=== PATIENT | female | born 1980 | race Caucasian/White ===

== ENCOUNTER 2024-06-28 20:07 | Inpatient (IN) | payer MEDICARE, OTHER ==
[~2024-06-28] VITALS: Ht 172.7 cm; Wt 129.7 kg
[~2024-06-28 20:07] MED LIST: BRIM5DRO9 OS; BRIN10DR3 OS; BUME1TAB50 PO; CARV25 PO; CLON0.3T PO; DOCU-119 PO; ERGO500054 PO; FERR325T23 PO; HYDR50TA36 PO; INSLAN SQ; ISOS20TA9 PO; NEED-463 SQ; SEMA0.258 SQ
[2024-06-28] MEDS ORDERED: ACETAMINOPHEN 500 MG TABLET PO ONE (20:30)
[2024-06-28] MEDS ORDERED: MORPHINE SULFATE 2 MG/ML SYRINGE IVP ONE (20:30)
[2024-06-28 21:31] LABS: BASOPHILS % (AUTO) 0.9 % (0.0-2.0); EOSINOPHILS % (AUTO) 3.3 % (1.0-6.0); HEMATOCRIT 25.9 % (36-46); HEMOGLOBIN 8.1 g/dL (12.0-16.0); LYMPHOCYTES # (AUTO) 1.5 K/uL (1.0-4.8); LYMPHOCYTES % (AUTO) 11.8 % (22.0-44.0); MEAN CORPUSCULAR HEMOGLOBIN 27.6 pg (26.0-34.0); MEAN CORPUSCULAR HGB CONC 31.4 G/dL (31.0-37.0); MEAN CORPUSCULAR VOLUME 88 fL (80-100); MONOCYTES # (AUTO) 0.8 K/uL (0.1-1.0); MONOCYTES % (AUTO) 5.8 % (2.0-9.0); NEUTROPHILS # (AUTO) 10.2 K/uL (1.8-7.7); NEUTROPHILS % (AUTO) 78.2 % (40.0-70.0); PLATELET COUNT (AUTO) 657 K/uL (150-450); RED BLOOD CELL COUNT(AUTO) 2.94 MIL/uL (4.00-5.20); RED CELL DISTRIBUTION WIDTH 17.2 % (11.5-14.5)
[2024-06-28] MEDS: BUMETANIDE 0.25 MG/ML 4 ML VIAL IVP ONE (21:35)
[2024-06-28] MEDS: HYDROCODONE/ACETAMINOPHEN 5-325 MG TABLET PO ONE (21:35)
[2024-06-28] MEDS: HydrALAZINE HCL 20 MG/ML VIAL IVP ONE (21:35)
[2024-06-28 21:38] LABS: ANION GAP 8 mmol/L (8-16); CALCIUM, TOTAL 8.7 mg/dL (8.8-10.5); CARBON DIOXIDE 27 mmol/L (22-29); CHLORIDE 102 mmol/L (98-107); CREATININE 4.14 mg/dL (0.60-1.30); GLOMERULAR FILTR. RATE CALC 12 mL/min (>60); GLUCOSE,RANDOM 255 mg/dL (70-110); POTASSIUM 3.9 mmol/L (3.5-5.1); SODIUM SERUM 137 mmol/L (136-145); UREA NITROGEN, BLOOD 77 mg/dL (7-18)
[2024-06-28 21:44] LABS: ALBUMIN 2.3 g/dL (3.4-5.0); BILIRUBIN,DIRECT 0.3 mg/dL (0.00-0.20); BILIRUBIN,TOTAL 0.5 mg/dL (0.1-1.0); TOTAL PROTEIN, SERUM 7.3 g/dL (6.4-8.2)
[2024-06-28 21:46] LABS: B-TYPE NATRIURETIC PEPTIDE 1100 pg/mL (0-100)
[2024-06-28 22:08] LABS: CREATINE KINASE, TOTAL ONLY 108 U/L (26-192)
[2024-06-28 22:12] LABS: TROPONIN I-HIGH SENSITIVITY 144 ng/L (<51)
[2024-06-28] MEDS ORDERED: HydrALAZINE HCL 20 MG/ML VIAL IVP PRN (22:15)
[2024-06-28] MEDS ORDERED: NITROGLYCERIN 2% (1 GM=INCH) OINTMENT PACKET TP SCH (22:15)
[2024-06-28] MEDS: LABETALOL HCL 200 MG TABLET PO SCH (22:50)
[2024-06-28 22:51] LABS: APPEARANCE,URINE CLEAR (CLEAR); BILIRUBIN,URINE NEGATIVE (NEGATIVE); COLOR,URINE LIGHT YELLOW (YELLOW); GLUCOSE, URINE (UA) 150-200 mg/dL (NEGATIVE); KETONES,URINE NEGATIVE (NEGATIVE); LEUKOCYTE ESTERASE ,URINE TRACE (NEGATIVE); NITRATE,URINE NEGATIVE (NEGATIVE); OCCULT BLOOD,URINE NEGATIVE (NEGATIVE); PH,URINE 6.5 (5.0-8.0); PROTEIN,URINE 300-600,SEE CONFIRM mg/dL (NEGATIVE); UROBILINOGEN,URINE <=1.0 mg/dL (<=1.0)
[2024-06-28 23:06] LABS: BACTERIA,URINE None Seen /HPF (None Seen); RBC,URINE 0-2 /HPF (0-2); SQUAMOUS EPITHELIAL CELL,UR Rare /LPF (None Seen); SULFOSALICYLIC ACID,URINE 3+ (Negative); WBC,URINE 0-2 /HPF (0-5)
[2024-06-28] MEDS: HEPARIN SODIUM,PORCINE 5,000 UNITS/ML VIAL SQ SCH (23:27)
[2024-06-28] MEDS: NITROGLYCERIN 2% (1 GM=INCH) OINTMENT PACKET TP SCH (23:27)
[2024-06-29] VITALS (7 sets, daily range): BP systolic 141–192; BP diastolic 73–103; PULSE 72–77; RESP 16–18; TEMP 97.7–98.2; O2SAT 97–100
[2024-06-29] MEDS: HydrALAZINE HCL 20 MG/ML VIAL IVP PRN (00:18)
[2024-06-29] MEDS: ACETAMINOPHEN 325 MG TABLET PO PRN (02:10)
[2024-06-29] MEDS: ISOSORBIDE MONONITRATE 30 MG ER TABLET PO ONE (02:13)
[2024-06-29 04:54] LABS: BASOPHILS % (AUTO) 1.1 % (0.0-2.0); EOSINOPHILS % (AUTO) 2.6 % (1.0-6.0); HEMATOCRIT 22.7 % (36-46); HEMOGLOBIN 7.3 g/dL (12.0-16.0); LYMPHOCYTES # (AUTO) 1.3 K/uL (1.0-4.8); LYMPHOCYTES % (AUTO) 12.7 % (22.0-44.0); MEAN CORPUSCULAR HGB CONC 32.2 G/dL (31.0-37.0); MEAN CORPUSCULAR VOLUME 87 fL (80-100); MONOCYTES # (AUTO) 0.8 K/uL (0.1-1.0); MONOCYTES % (AUTO) 7.3 % (2.0-9.0); NEUTROPHILS # (AUTO) 7.9 K/uL (1.8-7.7); NEUTROPHILS % (AUTO) 76.3 % (40.0-70.0); PLATELET COUNT (AUTO) 573 K/uL (150-450); RED BLOOD CELL COUNT(AUTO) 2.61 MIL/uL (4.00-5.20); RED CELL DISTRIBUTION WIDTH 17.4 % (11.5-14.5); WHITE BLOOD COUNT (AUTO) 10.4 K/uL (4.5-11.0)
[2024-06-29 05:03] LABS: CALCIUM, TOTAL 8.2 mg/dL (8.8-10.5); CREATININE 4.04 mg/dL (0.60-1.30); MAGNESIUM 2.1 mg/dL (1.80-2.40)
[2024-06-29 05:13] LABS: TROPONIN I-HIGH SENSITIVITY 151 ng/L (<51)
[2024-06-29] MEDS: DOCUSATE SODIUM 100 MG CAPSULE PO SCH (09:00)
[2024-06-29] MEDS: BUMETANIDE 0.25 MG/ML 4 ML VIAL IVP SCH (09:12)
[2024-06-29] MEDS: BRIMONIDINE TARTRATE 0.2% 5 ML OPHTHALMIC SOLUTION OS SCH (09:13)
[2024-06-29] MEDS: BRINZOLAMIDE 1% 10 ML OPHTHALMIC SUSPENSION OS SCH (09:13)
[2024-06-29] MEDS: DiphenhydrAMINE HCL 50 MG/ML VIAL IVP ONE (09:16)
[2024-06-29] MEDS: INSULIN GLARGINE,HUM.REC.ANLOG 100 UNITS/ML SQ SCH (09:22)
[2024-06-29 11:26] LABS: GLUCOMETER DEV NAME(LOC) 5N.1D; GLUCOSE,POINT OF CARE 280 MG/DL (70-110)
[2024-06-29] MEDS: CloNIDine HCL 0.1 MG TABLET PO ONE (13:11)
[2024-06-29] MEDS: CloNIDine HCL 0.1 MG TABLET PO SCH (15:23)
[2024-06-30] VITALS (7 sets, daily range): BP systolic 160–192; BP diastolic 81–96; PULSE 75–81; RESP 19–20; TEMP 97.9–98.6; O2SAT 92–99
[2024-06-30 00:11] LABS: GLUCOMETER DEV NAME(LOC) 5N.1D; GLUCOSE,POINT OF CARE 278 MG/DL (70-110)
[2024-06-30 07:14] LABS: CALCIUM, TOTAL 8.7 mg/dL (8.8-10.5); CREATININE 4.05 mg/dL (0.60-1.30); MAGNESIUM 2.2 mg/dL (1.80-2.40); PHOSPHORUS 5.7 mg/dL (2.5-4.9); POTASSIUM 3.9 mmol/L (3.5-5.1)
[2024-06-30] MEDS: ONDANSETRON HCL 4 MG/2 ML VIAL IVP PRN (08:24)
[2024-06-30] MEDS: CARVEDILOL 12.5 MG TABLET PO SCH ×2 (08:35→21:23)
[2024-06-30 10:46] LABS: GLUCOMETER DEV NAME(LOC) 5N.1D; GLUCOSE,POINT OF CARE 194 MG/DL (70-110)
[2024-06-30 10:46] LABS: GLUCOMETER DEV NAME(LOC) 5N.1D; GLUCOSE,POINT OF CARE 205 MG/DL (70-110)
[2024-06-30 12:01] LABS: GLUCOMETER DEV NAME(LOC) 5N.1D; GLUCOSE,POINT OF CARE 195 MG/DL (70-110)
[2024-06-30] MEDS: HydrALAZINE HCL 50 MG TABLET PO SCH (12:23)
[2024-06-30] MEDS: SEVELAMER CARBONATE 800 MG TABLET PO SCH (12:23)
[2024-06-30] MEDS: CloNIDine HCL 0.1 MG TABLET PO ONE (13:47)
[2024-06-30] MEDS: CloNIDine HCL 0.1 MG TABLET PO SCH (16:35)
[2024-06-30 19:55] LABS: GLUCOMETER DEV NAME(LOC) 5N.1D; GLUCOSE,POINT OF CARE 211 MG/DL (70-110)
[2024-06-30] MEDS: HydrALAZINE HCL 25 MG TABLET PO SCH (23:56)
[2024-07-01] VITALS (7 sets, daily range): BP systolic 164–189; BP diastolic 79–91; PULSE 67–81; RESP 17–20; TEMP 97.7–98.8; O2SAT 93–96
[2024-07-01 06:07] LABS: BASOPHILS % (AUTO) 1.4 % (0.0-2.0); EOSINOPHILS % (AUTO) 3.3 % (1.0-6.0); HEMATOCRIT 24.2 % (36-46); HEMOGLOBIN 7.7 g/dL (12.0-16.0); LYMPHOCYTES # (AUTO) 2.1 K/uL (1.0-4.8); LYMPHOCYTES % (AUTO) 20.2 % (22.0-44.0); MEAN CORPUSCULAR HEMOGLOBIN 27.9 pg (26.0-34.0); MEAN CORPUSCULAR HGB CONC 31.9 G/dL (31.0-37.0); MEAN CORPUSCULAR VOLUME 88 fL (80-100); MONOCYTES % (AUTO) 9.6 % (2.0-9.0); NEUTROPHILS # (AUTO) 6.9 K/uL (1.8-7.7); NEUTROPHILS % (AUTO) 65.5 % (40.0-70.0); PLATELET COUNT (AUTO) 552 K/uL (150-450); RED BLOOD CELL COUNT(AUTO) 2.76 MIL/uL (4.00-5.20); RED CELL DISTRIBUTION WIDTH 17.8 % (11.5-14.5); WHITE BLOOD COUNT (AUTO) 10.6 K/uL (4.5-11.0)
[2024-07-01 06:10] LABS: GLUCOMETER DEV NAME(LOC) 5N.1D; GLUCOSE,POINT OF CARE 248 MG/DL (70-110)
[2024-07-01 06:18] LABS: CALCIUM, TOTAL 8.6 mg/dL (8.8-10.5); CREATININE 3.84 mg/dL (0.60-1.30); POTASSIUM 3.7 mmol/L (3.5-5.1)
[2024-07-01 09:04] LABS: % IRON SATURATION 13.9 % (22-44)
[2024-07-01] MEDS: ISOSORBIDE MONONITRATE 30 MG ER TABLET PO SCH ×2 (09:16→20:19)
[2024-07-01 12:16] LABS: GLUCOMETER DEV NAME(LOC) 5S.2D; GLUCOSE,POINT OF CARE 128 MG/DL (70-110)
[2024-07-01 12:16] LABS: GLUCOMETER DEV NAME(LOC) 5S.2D; GLUCOSE,POINT OF CARE 114 MG/DL (70-110)
[2024-07-01] MEDS: DiphenhydrAMINE/ZINC ACET 30 GM CREAM TP ONE (14:11)
[2024-07-01 17:51] LABS: GLUCOMETER DEV NAME(LOC) 5S.2D; GLUCOSE,POINT OF CARE 106 MG/DL (70-110)
[2024-07-01 20:40] LABS: GLUCOMETER DEV NAME(LOC) 5N.1D; GLUCOSE,POINT OF CARE 103 MG/DL (70-110)
[2024-07-01 21:26] LABS: GLUCOMETER DEV NAME(LOC) 5S.2D; GLUCOSE,POINT OF CARE 124 MG/DL (70-110)
[2024-07-02 02:05] VITALS: BP 186/89; PULSE 78; RESP 18; O2SAT 98
[2024-07-02 04:55] VITALS: BP 193/93; PULSE 73; RESP 18; TEMP 98.2; O2SAT 97
[2024-07-02 05:59] LABS: BASOPHILS % (AUTO) 1.1 % (0.0-2.0); EOSINOPHILS % (AUTO) 3.9 % (1.0-6.0); HEMATOCRIT 24.1 % (36-46); HEMOGLOBIN 7.7 g/dL (12.0-16.0); LYMPHOCYTES # (AUTO) 2.1 K/uL (1.0-4.8); LYMPHOCYTES % (AUTO) 20.9 % (22.0-44.0); MEAN CORPUSCULAR VOLUME 88 fL (80-100); MONOCYTES # (AUTO) 0.8 K/uL (0.1-1.0); NEUTROPHILS # (AUTO) 6.6 K/uL (1.8-7.7); NEUTROPHILS % (AUTO) 66.1 % (40.0-70.0); PLATELET COUNT (AUTO) 551 K/uL (150-450); RED BLOOD CELL COUNT(AUTO) 2.75 MIL/uL (4.00-5.20); RED CELL DISTRIBUTION WIDTH 18.1 % (11.5-14.5); WHITE BLOOD COUNT (AUTO) 9.9 K/uL (4.5-11.0)
[2024-07-02 06:09] LABS: CALCIUM, TOTAL 8.8 mg/dL (8.8-10.5); CREATININE 3.99 mg/dL (0.60-1.30); PHOSPHORUS 5.5 mg/dL (2.5-4.9); POTASSIUM 3.8 mmol/L (3.5-5.1)
[2024-07-02 08:15] VITALS: BP 179/87; PULSE 77; RESP 19; TEMP 98.4; O2SAT 91
[2024-07-02] MEDS: ISOSORBIDE MONONITRATE 30 MG ER TABLET PO SCH (09:15)
[2024-07-02] MEDS: CloNIDine 0.2 MG/24 HOUR PATCH TD ONE (09:17)
[2024-07-02 10:42] LABS: GLUCOMETER DEV NAME(LOC) 5S.2D; GLUCOSE,POINT OF CARE 84 MG/DL (70-110)
[2024-07-02 11:31] LABS: GLUCOMETER DEV NAME(LOC) 5N.2C; GLUCOSE,POINT OF CARE 120 MG/DL (70-110)
[2024-07-02 11:40] VITALS: BP 160/78; PULSE 75; RESP 18; TEMP 98.1; O2SAT 96
[2024-07-02 12:22] LABS: TROPONIN I-HIGH SENSITIVITY 150 ng/L (<51)
[2024-07-02 17:25] LABS: GLUCOMETER DEV NAME(LOC) 5N.2C; GLUCOSE,POINT OF CARE 107 MG/DL (70-110)
[2024-07-02] MEDS: EPOETIN ALFA 10,000 UNITS/ML VIAL SQ ONE (17:44)
[2024-07-02 17:58] VITALS: BP 195/91; PULSE 77; RESP 18; TEMP 98.4; O2SAT 96
[2024-07-02 18:05] LABS: GLUCOMETER DEV NAME(LOC) 5N.1D; GLUCOSE,POINT OF CARE 95 MG/DL (70-110)
[2024-07-02 20:00] VITALS: BP 180/82; PULSE 82; RESP 17; TEMP 98; O2SAT 95
[2024-07-02 22:01] LABS: GLUCOMETER DEV NAME(LOC) 5S.2D; GLUCOSE,POINT OF CARE 132 MG/DL (70-110)
[2024-07-03] VITALS (8 sets, daily range): BP systolic 162–198; BP diastolic 79–92; PULSE 70–83; RESP 18–20; TEMP 97.7–98.2; O2SAT 93–97
[2024-07-03 06:45] LABS: GLUCOMETER DEV NAME(LOC) 5S.2D; GLUCOSE,POINT OF CARE 113 MG/DL (70-110)
[2024-07-03 08:07] LABS: BASOPHILS % (AUTO) 0.8 % (0.0-2.0); EOSINOPHILS % (AUTO) 4.2 % (1.0-6.0); HEMATOCRIT 22.9 % (36-46); HEMOGLOBIN 7.3 g/dL (12.0-16.0); LYMPHOCYTES # (AUTO) 2.3 K/uL (1.0-4.8); LYMPHOCYTES % (AUTO) 24.1 % (22.0-44.0); MEAN CORPUSCULAR HEMOGLOBIN 27.9 pg (26.0-34.0); MEAN CORPUSCULAR HGB CONC 31.8 G/dL (31.0-37.0); MEAN CORPUSCULAR VOLUME 88 fL (80-100); MONOCYTES # (AUTO) 0.8 K/uL (0.1-1.0); MONOCYTES % (AUTO) 8.5 % (2.0-9.0); NEUTROPHILS % (AUTO) 62.4 % (40.0-70.0); PLATELET COUNT (AUTO) 489 K/uL (150-450); RED BLOOD CELL COUNT(AUTO) 2.61 MIL/uL (4.00-5.20); RED CELL DISTRIBUTION WIDTH 17.8 % (11.5-14.5); WHITE BLOOD COUNT (AUTO) 9.5 K/uL (4.5-11.0)
[2024-07-03 08:26] LABS: ALBUMIN 2.1 g/dL (3.4-5.0); BILIRUBIN,TOTAL 0.5 mg/dL (0.1-1.0); CALCIUM, TOTAL 8.6 mg/dL (8.8-10.5); CREATININE 3.98 mg/dL (0.60-1.30); POTASSIUM 3.6 mmol/L (3.5-5.1); TOTAL PROTEIN, SERUM 6.6 g/dL (6.4-8.2)
[2024-07-03] MEDS: CloNIDine HCL 0.1 MG TABLET PO SCH (12:02)
[2024-07-03] MEDS: MINOXIDIL 2.5 MG TABLET PO SCH (13:10)
[2024-07-03] MEDS: HYDROCODONE/ACETAMINOPHEN 5-325 MG TABLET PO PRN (15:36)
[2024-07-03 17:05] LABS: GLUCOMETER DEV NAME(LOC) 5S.2D; GLUCOSE,POINT OF CARE 137 MG/DL (70-110)
[2024-07-03 21:31] LABS: GLUCOMETER DEV NAME(LOC) 5N.1D; GLUCOSE,POINT OF CARE 180 MG/DL (70-110)
[2024-07-04] VITALS (8 sets, daily range): BP systolic 127–179; BP diastolic 66–88; PULSE 76–85; RESP 17–19; TEMP 97.7–98.2; O2SAT 95–99
[2024-07-04 06:05] LABS: GLUCOMETER DEV NAME(LOC) 5S.2D; GLUCOSE,POINT OF CARE 255 MG/DL (70-110)
[2024-07-04 06:16] LABS: GLUCOMETER DEV NAME(LOC) 5N.2C; GLUCOSE,POINT OF CARE 222 MG/DL (70-110)
[2024-07-04] MEDS: ERGOCALCIFEROL (VIT D2) 50,000 UNITS [1,250 MCG] CAPSULE PO SCH (13:42)
[2024-07-04 14:11] LABS: GLUCOMETER DEV NAME(LOC) 5N.2C; GLUCOSE,POINT OF CARE 240 MG/DL (70-110)
[2024-07-04 20:06] LABS: GLUCOMETER DEV NAME(LOC) 5N.1D; GLUCOSE,POINT OF CARE 193 MG/DL (70-110)
[2024-07-05 01:40] LABS: GLUCOMETER DEV NAME(LOC) 5N.1D; GLUCOSE,POINT OF CARE 238 MG/DL (70-110)
[2024-07-05 04:43] VITALS: BP 172/78; PULSE 76; RESP 18; TEMP 97.7; O2SAT 95
[2024-07-05] MEDS ORDERED: MIDAZOLAM HCL 2 MG/2 ML VIAL ONE (04:58)
[2024-07-05] MEDS ORDERED: ONDANSETRON HCL 4 MG/2 ML VIAL ONE (04:58)
[2024-07-05] MEDS ORDERED: DiphenhydrAMINE HCL 50 MG/ML VIAL ONE (04:58)
[2024-07-05] MEDS ORDERED: PROPOFOL 1% ISO-OSM 1000 MG/100 ML BOTTLE ONE (04:58)
[2024-07-05] MEDS ORDERED: FentaNYL CITRATE PF 100 MCG/2 ML VIAL ONE (04:58)
[2024-07-05] MEDS ORDERED: KETAMINE HCL 50 MG/ML 10 ML VIAL ONE (04:58)
[2024-07-05] MEDS ORDERED: GLYCOPYRROLATE 0.2 MG/ML VIAL ONE (04:58)
[2024-07-05] MEDS ORDERED: LIDOCAINE/PF 2% 5 ML SYRINGE IVP ONE (04:58)
[2024-07-05 05:45] VITALS: BP 165/70
[2024-07-05] MEDS ORDERED: MEPERIDINE-PF 25 MG/ML VIAL IVP PRN (07:45)
[2024-07-05] MEDS ORDERED: FentaNYL CITRATE PF 100 MCG/2 ML VIAL IVP PRN (07:45)
[2024-07-05] MEDS ORDERED: HYDROmorphone HCL 2 MG/ML SYRINGE IVP PRN (07:45)
[2024-07-05] MEDS: OXYGEN THERAPY IH SCH (08:23)
[2024-07-05 08:31] LABS: GLUCOMETER DEV NAME(LOC) 5N.1D; GLUCOSE,POINT OF CARE 152 MG/DL (70-110)
[2024-07-05 08:54] VITALS: BP 159/77; PULSE 81; RESP 17; TEMP 98.1; O2SAT 98
[2024-07-05 09:09] LABS: CALCIUM, TOTAL 9.1 mg/dL (8.8-10.5); CREATININE 4.06 mg/dL (0.60-1.30); POTASSIUM 3.7 mmol/L (3.5-5.1)
[2024-07-05 09:16] LABS: EOSINOPHILS % (AUTO) 5.2 % (1.0-6.0); HEMATOCRIT 24.7 % (36-46); HEMOGLOBIN 7.7 g/dL (12.0-16.0); LYMPHOCYTES # (AUTO) 1.6 K/uL (1.0-4.8); LYMPHOCYTES % (AUTO) 16.8 % (22.0-44.0); MEAN CORPUSCULAR HEMOGLOBIN 27.4 pg (26.0-34.0); MEAN CORPUSCULAR VOLUME 88 fL (80-100); MONOCYTES % (AUTO) 10.6 % (2.0-9.0); NEUTROPHILS # (AUTO) 6.2 K/uL (1.8-7.7); NEUTROPHILS % (AUTO) 66.4 % (40.0-70.0); PLATELET COUNT (AUTO) 460 K/uL (150-450); RED CELL DISTRIBUTION WIDTH 18.1 % (11.5-14.5); WHITE BLOOD COUNT (AUTO) 9.3 K/uL (4.5-11.0)
[2024-07-05 09:27] LABS: PROTHROMBIN TIME 11.1 SEC (9.4-11.6)
[2024-07-05] MEDS ORDERED: SODIUM CHLORIDE 0.9% 1,000 ML ONE (11:29)
[2024-07-05] MEDS: ETHYL ALCOHOL 62% ANTISEPTIC NASAL SANITIZER 0.6 ML AMPUL NASAL ONE (11:42)
[2024-07-05] MEDS: CHLORHEXIDINE GLUCONATE 2% TOWELETTE [2'S/6'S] TP ONE (11:43)
[2024-07-05 12:00] VITALS: BP 155/74; PULSE 83; RESP 21; TEMP 97.9; O2SAT 96
[2024-07-05 12:10] LABS: GLUCOMETER DEV NAME(LOC) 5N.2C; GLUCOSE,POINT OF CARE 85 MG/DL (70-110)
[2024-07-05] MEDS ORDERED: SODIUM CHLORIDE 0.9% 250 ML IV ONE (12:18)
[2024-07-05] MEDS ORDERED: CeFAZolin SODIUM 1 GM VIAL ONE (12:27)
[2024-07-05] MEDS ORDERED: VANCOMYCIN HCL 1 GM VIAL ONE (12:58)
[2024-07-05] MEDS: CLINDAMYCIN 600 MG/D5% WATER 50 ML IV ONE (13:00)
[2024-07-05] MEDS: SODIUM CHLORIDE 0.9% 1,000 ML IV ONE (13:24)
[2024-07-05] MEDS: HEPARIN SODIUM,PORCINE 5,000 UNITS/ML VIAL ONE (15:24)
[2024-07-05] MEDS: LIDOCAINE/PF 1% 30 ML VIAL ONE (15:25)
[2024-07-05 18:00] LABS: GLUCOMETER DEV NAME(LOC) 5N.1D; GLUCOSE,POINT OF CARE 82 MG/DL (70-110)
[2024-07-05 19:39] VITALS: BP 166/80; PULSE 93; RESP 19; TEMP 98; O2SAT 96
[2024-07-05 21:50] LABS: GLUCOMETER DEV NAME(LOC) 5S.2D; GLUCOSE,POINT OF CARE 179 MG/DL (70-110)
[2024-07-06 00:35] VITALS: BP 139/93; PULSE 86; RESP 17; TEMP 98.2; O2SAT 96
[2024-07-06 05:52] VITALS: BP 163/76; PULSE 87; RESP 19; TEMP 98.6; O2SAT 97
[2024-07-06 07:05] LABS: GLUCOMETER DEV NAME(LOC) 5N.1D; GLUCOSE,POINT OF CARE 172 MG/DL (70-110)
[2024-07-06 07:29] LABS: BASOPHILS % (AUTO) 0.9 % (0.0-2.0); EOSINOPHILS % (AUTO) 3.5 % (1.0-6.0); HEMATOCRIT 24.5 % (36-46); HEMOGLOBIN 7.7 g/dL (12.0-16.0); LYMPHOCYTES # (AUTO) 1.5 K/uL (1.0-4.8); LYMPHOCYTES % (AUTO) 16.1 % (22.0-44.0); MEAN CORPUSCULAR HEMOGLOBIN 27.8 pg (26.0-34.0); MEAN CORPUSCULAR HGB CONC 31.3 G/dL (31.0-37.0); MEAN CORPUSCULAR VOLUME 89 fL (80-100); MONOCYTES # (AUTO) 0.8 K/uL (0.1-1.0); MONOCYTES % (AUTO) 8.8 % (2.0-9.0); NEUTROPHILS # (AUTO) 6.5 K/uL (1.8-7.7); NEUTROPHILS % (AUTO) 70.7 % (40.0-70.0); PLATELET COUNT (AUTO) 463 K/uL (150-450); RED BLOOD CELL COUNT(AUTO) 2.75 MIL/uL (4.00-5.20); RED CELL DISTRIBUTION WIDTH 18.8 % (11.5-14.5); WHITE BLOOD COUNT (AUTO) 9.3 K/uL (4.5-11.0)
[2024-07-06 07:41] LABS: CALCIUM, TOTAL 8.5 mg/dL (8.8-10.5); CREATININE 4.11 mg/dL (0.60-1.30)
[2024-07-06 08:00] VITALS: BP 171/85; PULSE 85; RESP 16; TEMP 97.9; O2SAT 98
[2024-07-06] MEDS ORDERED: SEVE800T7 PO (11:08)
[2024-07-06] MEDS ORDERED: MINO2.5 PO (11:08)
[2024-07-06] MEDS ORDERED: HYDR25TA84 PO (11:08)
[2024-07-06] MEDS ORDERED: BUME1TAB50 PO (11:08)
[2024-07-06] MEDS ORDERED: CLON-353 PO (11:08)
[2024-07-06] MEDS ORDERED: ISOS30TA92 PO (11:08)
[2024-07-06 11:45] LABS: GLUCOMETER DEV NAME(LOC) 5N.1D; GLUCOSE,POINT OF CARE 180 MG/DL (70-110)
[2024-07-06 12:00] VITALS: BP 145/63; PULSE 87; RESP 18; TEMP 98.2; O2SAT 97
[2024-07-06] MEDS: CloNIDine HCL 0.1 MG TABLET PO ONE ×2 (12:00→22:31)
[2024-07-06 16:10] VITALS: BP 137/66; PULSE 81; RESP 16; TEMP 98.2; O2SAT 100
[2024-07-06 20:17] VITALS: BP 156/73; PULSE 85; RESP 18; TEMP 98.6; O2SAT 98
[2024-07-06 20:31] LABS: GLUCOMETER DEV NAME(LOC) 5S.2D; GLUCOSE,POINT OF CARE 174 MG/DL (70-110)
[2024-07-06] MEDS ORDERED: GABA-1216 PO (20:54)
[2024-07-06] MEDS ORDERED: CloNIDine HCL 0.1 MG TABLET PO SCH (21:00)
[2024-07-06 22:56] LABS: GLUCOMETER DEV NAME(LOC) 5S.2D; GLUCOSE,POINT OF CARE 156 MG/DL (70-110)
[2024-07-07] VITALS: BP 159/74; PULSE 78; RESP 16; TEMP 97.7; O2SAT 96
[2024-07-07 04:00] VITALS: BP 148/73; PULSE 78; RESP 18; TEMP 97.9; O2SAT 96
[2024-07-07 06:40] LABS: GLUCOMETER DEV NAME(LOC) 5N.1D; GLUCOSE,POINT OF CARE 151 MG/DL (70-110)
[2024-07-07] MEDS ORDERED: HYDR-4062 PO (07:54)
[2024-07-07 08:42] VITALS: BP 153/78; PULSE 77; RESP 16; TEMP 97.7; O2SAT 94
[2024-07-07] MEDS: GABAPENTIN 100 MG CAPSULE PO SCH (09:06)
[2024-07-07] MEDS: CloNIDine HCL 0.1 MG TABLET PO SCH (09:06)
[2024-07-07 12:45] VITALS: BP 159/77; PULSE 84; RESP 16; TEMP 98.2; O2SAT 95
[2024-07-07 17:21] LABS: GLUCOMETER DEV NAME(LOC) 5S.2D; GLUCOSE,POINT OF CARE 171 MG/DL (70-110)
== END 2024-07-07 13:00 | disposition home health service (06) | DRG 264 ==
LOC: EMS 20:07 → EDH 22:09 → 5S 06-29 01:11
PROVIDERS: ADMIT Internal Medicine; ATTEND Internal Medicine
PROC: 03180ZD Bypass Left Brachial Artery to Upper Arm Vein, Open Approach (ICD-10-PCS; principal; 2024-07-05 14:40)
DX: I13.2 Hypertensive heart and chronic kidney disease with heart failure and with stage 5 chronic kidney disease, or end stage renal disease (principal); I16.1 Hypertensive emergency; N17.9 Acute kidney failure, unspecified; N18.5 Chronic kidney disease, stage 5; Z68.41 Body mass index [BMI] 40.0-44.9, adult; I50.9 Heart failure, unspecified; E11.22 Type 2 diabetes mellitus with diabetic chronic kidney disease; E11.65 Type 2 diabetes mellitus with hyperglycemia; D64.9 Anemia, unspecified; E11.319 Type 2 diabetes mellitus with unspecified diabetic retinopathy without macular edema; E66.01 Morbid (severe) obesity due to excess calories; E11.40 Type 2 diabetes mellitus with diabetic neuropathy, unspecified; H54.7 Unspecified visual loss; I27.20 Pulmonary hypertension, unspecified; I36.1 Nonrheumatic tricuspid (valve) insufficiency; D63.1 Anemia in chronic kidney disease; E83.39 Other disorders of phosphorus metabolism; D75.839 Thrombocytosis, unspecified; E78.5 Hyperlipidemia, unspecified; Z79.899 Other long term (current) drug therapy; Z88.1 Allergy status to other antibiotic agents; Z91.040 Latex allergy status; Z88.8 Allergy status to other drugs, medicaments and biological substances; Z91.018 Allergy to other foods; Z83.3 Family history of diabetes mellitus; Z88.0 Allergy status to penicillin; Z88.6 Allergy status to analgesic agent; Z79.4 Long term (current) use of insulin; Z91.010 Allergy to peanuts
CPT/HCPCS: 70450; 71045; 80048; 80053; 80076; 81001; 81002; 82271; 82550; 82962; 83540; 83550; 83735; 83880; 84100; 84484; 84703; 85025; 85045; 85610; 85730; 93005; 93306; 93970; 96374; 96375; 97110; 97116; 97162; 97530; 99291; G0378; J0360; J0690; J0885; J1200; J1644; J1815; J2250; J2405; J2704; J3010; J3370; J3490; J7030; J7050; 36415-L1; 36415-TC; Z7610

== ENCOUNTER 2024-07-20 02:32 | Inpatient (IN) | payer MEDICARE, OTHER ==
[~2024-07-20] VITALS: Ht 172.7 cm; Wt 139.3 kg
[~2024-07-20 02:32] MED LIST changes: +CLON-353 PO; -CLON0.3T PO; +GABA-1216 PO; +HYDR-4062 PO; +HYDR25TA84 PO; -ISOS20TA9 PO; +ISOS30TA92 PO; +MINO2.5 PO; +SEVE800T7 PO
[2024-07-20] MEDS: HydrALAZINE HCL 25 MG TABLET PO ONE (03:24)
[2024-07-20 03:25] LABS: EOSINOPHILS % (AUTO) 2.4 % (1.0-6.0); HEMATOCRIT 23.3 % (36-46); HEMOGLOBIN 7.3 g/dL (12.0-16.0); LYMPHOCYTES # (AUTO) 0.9 K/uL (1.0-4.8); LYMPHOCYTES % (AUTO) 11.5 % (22.0-44.0); MEAN CORPUSCULAR HEMOGLOBIN 27.9 pg (26.0-34.0); MEAN CORPUSCULAR HGB CONC 31.4 G/dL (31.0-37.0); MEAN CORPUSCULAR VOLUME 89 fL (80-100); MONOCYTES # (AUTO) 0.9 K/uL (0.1-1.0); MONOCYTES % (AUTO) 10.9 % (2.0-9.0); NEUTROPHILS % (AUTO) 74.2 % (40.0-70.0); PLATELET COUNT (AUTO) 446 K/uL (150-450); RED BLOOD CELL COUNT(AUTO) 2.62 MIL/uL (4.00-5.20); RED CELL DISTRIBUTION WIDTH 18.7 % (11.5-14.5); WHITE BLOOD COUNT (AUTO) 8.1 K/uL (4.5-11.0)
[2024-07-20] MEDS: HYDROCODONE/ACETAMINOPHEN 5-325 MG TABLET PO ONE (03:25)
[2024-07-20 03:32] LABS: ANION GAP 12 mmol/L (8-16); CALCIUM, TOTAL 8.3 mg/dL (8.8-10.5); CARBON DIOXIDE 21 mmol/L (22-29); CHLORIDE 96 mmol/L (98-107); CREATININE 5.56 mg/dL (0.60-1.30); GLOMERULAR FILTR. RATE CALC 8 mL/min (>60); GLUCOSE,RANDOM 330 mg/dL (70-110); POTASSIUM 5.6 mmol/L (3.5-5.1); SODIUM SERUM 129 mmol/L (136-145)
[2024-07-20 03:39] LABS: B-TYPE NATRIURETIC PEPTIDE 637 pg/mL (0-100)
[2024-07-20 03:41] LABS: UREA NITROGEN, BLOOD 101 mg/dL (7-18)
[2024-07-20 03:44] LABS: TROPONIN I-HIGH SENSITIVITY 142 ng/L (<51)
[2024-07-20] MEDS: DEXTROSE 50%-WATER 25 GM/50 ML SYRINGE IVP ONE (04:10)
[2024-07-20] MEDS: FUROSEMIDE 40 MG/4 ML VIAL IVP ONE (04:10)
[2024-07-20] MEDS: INSULIN REGULAR, HUMAN 100 UNITS/ML IVP ONE (04:11)
[2024-07-20] MEDS: CALCIUM GLUCONATE 1,000 MG in DEXTROSE 5%-WATER 50 ML IV ONE (04:47)
[2024-07-20 06:45] LABS: GLUCOMETER DEV NAME(LOC) ER.7; GLUCOSE,POINT OF CARE 241 MG/DL (70-110)
[2024-07-20 06:45] LABS: GLUCOMETER DEV NAME(LOC) ER.7; GLUCOSE,POINT OF CARE 279 MG/DL (70-110)
[2024-07-20] MEDS ORDERED: DEXTROSE 50%-WATER 25 GM/50 ML SYRINGE IVP PRN (06:45)
[2024-07-20] MEDS ORDERED: ACETAMINOPHEN 325 MG TABLET PO PRN (06:45)
[2024-07-20 07:38] LABS: TROPONIN I-HIGH SENSITIVITY 162 ng/L (<51)
[2024-07-20] MEDS: FERROUS SULFATE 325 MG EC TABLET PO SCH (08:24)
[2024-07-20] MEDS: minoxidiL 2.5 MG TABLET PO SCH (08:24)
[2024-07-20] MEDS: carvediloL 25 MG TABLET PO SCH (08:24)
[2024-07-20] MEDS: SEVELAMER CARBONATE 800 MG TABLET PO SCH (08:24)
[2024-07-20] MEDS: HEPARIN SODIUM,PORCINE 5,000 UNITS/ML VIAL SQ SCH (08:25)
[2024-07-20] MEDS: INSULIN GLARGINE,HUM.REC.ANLOG 100 UNITS/ML SQ SCH ×2 (09:00→09:08)
[2024-07-20] MEDS: BRIMONIDINE TARTRATE 0.2% 5 ML OPHTHALMIC SOLUTION OS SCH (09:00)
[2024-07-20] MEDS: BRINZOLAMIDE 1% 10 ML OPHTHALMIC SUSPENSION OS SCH (09:00)
[2024-07-20] MEDS ORDERED: HydrALAZINE HCL 50 MG TABLET PO SCH (09:00)
[2024-07-20] MEDS: CloNIDine HCL 0.2 MG TABLET PO SCH (09:07)
[2024-07-20] MEDS: GABAPENTIN 100 MG CAPSULE PO SCH (09:07)
[2024-07-20 09:11] LABS: GLUCOMETER DEV NAME(LOC) ER.7; GLUCOSE,POINT OF CARE 229 MG/DL (70-110)
[2024-07-20 11:03] VITALS: BP 122/73; PULSE 86; RESP 18; TEMP 97.9; O2SAT 98
[2024-07-20] MEDS: HydrALAZINE HCL 25 MG TABLET PO SCH (11:51)
[2024-07-20] MEDS: INSULIN LISPRO 100 UNITS/ML SQ PRN (12:10)
[2024-07-20 13:28] VITALS: BP 125/75; PULSE 84; RESP 19; TEMP 98; O2SAT 98
[2024-07-20] MEDS: HYDROCODONE/ACETAMINOPHEN 5-325 MG TABLET PO PRN (13:36)
[2024-07-20 16:06] VITALS: BP 119/87; PULSE 65; RESP 18; TEMP 98.2; O2SAT 97
[2024-07-20] MEDS: SODIUM ZIRCONIUM CYCLOSILICATE 10 GM POWDER PACKET PO SCH (18:51)
[2024-07-20 20:01] VITALS: BP 128/69; PULSE 70; RESP 18; TEMP 98.1; O2SAT 95
[2024-07-20] MEDS: BUMETANIDE 0.25 MG/ML 4 ML VIAL IVP SCH (20:55)
[2024-07-21 00:02] VITALS: BP 125/71; PULSE 68; RESP 18; TEMP 97.7; O2SAT 95
[2024-07-21 04:10] VITALS: BP 144/74; PULSE 67; RESP 18; TEMP 97.7; O2SAT 94
[2024-07-21 08:17] LABS: BASOPHILS % (AUTO) 1.3 % (0.0-2.0); EOSINOPHILS % (AUTO) 3.5 % (1.0-6.0); HEMATOCRIT 23.8 % (36-46); HEMOGLOBIN 7.5 g/dL (12.0-16.0); LYMPHOCYTES # (AUTO) 1.3 K/uL (1.0-4.8); LYMPHOCYTES % (AUTO) 18.6 % (22.0-44.0); MEAN CORPUSCULAR HEMOGLOBIN 27.7 pg (26.0-34.0); MEAN CORPUSCULAR HGB CONC 31.4 G/dL (31.0-37.0); MEAN CORPUSCULAR VOLUME 88 fL (80-100); MONOCYTES # (AUTO) 0.9 K/uL (0.1-1.0); MONOCYTES % (AUTO) 12.9 % (2.0-9.0); NEUTROPHILS # (AUTO) 4.6 K/uL (1.8-7.7); NEUTROPHILS % (AUTO) 63.7 % (40.0-70.0); PLATELET COUNT (AUTO) 454 K/uL (150-450); RED CELL DISTRIBUTION WIDTH 18.9 % (11.5-14.5); WHITE BLOOD COUNT (AUTO) 7.2 K/uL (4.5-11.0)
[2024-07-21 08:28] VITALS: BP 131/76; PULSE 66; RESP 17; TEMP 97.5; O2SAT 97
[2024-07-21 08:28] LABS: CALCIUM, TOTAL 8.8 mg/dL (8.8-10.5); CREATININE 5.73 mg/dL (0.60-1.30); MAGNESIUM 2.5 mg/dL (1.80-2.40); PHOSPHORUS 7.4 mg/dL (2.5-4.9)
[2024-07-21] MEDS: EPOETIN ALFA 10,000 UNITS/ML VIAL SQ SCH (09:14)
[2024-07-21 11:59] VITALS: BP 144/82; PULSE 66; RESP 18; TEMP 97.9; O2SAT 95
[2024-07-21 16:36] VITALS: BP 147/80; PULSE 68; RESP 18; TEMP 97.9; O2SAT 97
[2024-07-21 18:12] LABS: GLUCOMETER DEV NAME(LOC) 5N.1D; GLUCOSE,POINT OF CARE 280 MG/DL (70-110)
[2024-07-21 18:13] LABS: GLUCOMETER DEV NAME(LOC) 5N.1D; GLUCOSE,POINT OF CARE 165 MG/DL (70-110)
[2024-07-21 18:13] LABS: GLUCOMETER DEV NAME(LOC) 5N.1D; GLUCOSE,POINT OF CARE 164 MG/DL (70-110)
[2024-07-21 18:13] LABS: GLUCOMETER DEV NAME(LOC) 5N.1D; GLUCOSE,POINT OF CARE 140 MG/DL (70-110)
[2024-07-21] MEDS: DiphenhydrAMINE/ZINC ACET 30 GM CREAM TP PRN (18:31)
[2024-07-21 20:04] VITALS: BP 157/75; PULSE 72; RESP 17; TEMP 97.7; O2SAT 96
[2024-07-22] VITALS: BP 162/86; PULSE 70; RESP 18; TEMP 97.9; O2SAT 98
[2024-07-22 04:00] VITALS: BP 153/81; PULSE 68; RESP 16; TEMP 97.6; O2SAT 96
[2024-07-22 08:00] VITALS: BP 149/92; PULSE 61; RESP 20; TEMP 98; O2SAT 97
[2024-07-22 16:02] VITALS: BP 151/78; PULSE 68; RESP 18; TEMP 97.9; O2SAT 97
[2024-07-22 20:00] VITALS: BP 131/81; PULSE 70; RESP 16; TEMP 97.3; O2SAT 97
[2024-07-22 20:21] LABS: GLUCOMETER DEV NAME(LOC) 5N.2C; GLUCOSE,POINT OF CARE 122 MG/DL (70-110)
[2024-07-22 20:21] LABS: GLUCOMETER DEV NAME(LOC) 5N.2C; GLUCOSE,POINT OF CARE 158 MG/DL (70-110)
[2024-07-23] VITALS: BP 161/83; PULSE 68; RESP 20; TEMP 97.7; O2SAT 95
[2024-07-23] MEDS: HydrALAZINE HCL 50 MG TABLET PO SCH (00:15)
[2024-07-23 04:00] VITALS: BP 154/79; PULSE 65; RESP 18; TEMP 97.5; O2SAT 95
[2024-07-23 07:40] LABS: BASOPHILS % (AUTO) 1.1 % (0.0-2.0); EOSINOPHILS % (AUTO) 4.1 % (1.0-6.0); HEMATOCRIT 25.2 % (36-46); LYMPHOCYTES # (AUTO) 1.2 K/uL (1.0-4.8); LYMPHOCYTES % (AUTO) 16.5 % (22.0-44.0); MEAN CORPUSCULAR HEMOGLOBIN 27.9 pg (26.0-34.0); MEAN CORPUSCULAR HGB CONC 31.7 G/dL (31.0-37.0); MEAN CORPUSCULAR VOLUME 88 fL (80-100); MONOCYTES % (AUTO) 12.9 % (2.0-9.0); NEUTROPHILS # (AUTO) 4.9 K/uL (1.8-7.7); NEUTROPHILS % (AUTO) 65.4 % (40.0-70.0); PLATELET COUNT (AUTO) 483 K/uL (150-450); RED BLOOD CELL COUNT(AUTO) 2.87 MIL/uL (4.00-5.20); RED CELL DISTRIBUTION WIDTH 18.7 % (11.5-14.5); WHITE BLOOD COUNT (AUTO) 7.5 K/uL (4.5-11.0)
[2024-07-23 08:03] LABS: CALCIUM, TOTAL 8.5 mg/dL (8.8-10.5); CREATININE 5.85 mg/dL (0.60-1.30); PHOSPHORUS 7.5 mg/dL (2.5-4.9); POTASSIUM 4.5 mmol/L (3.5-5.1)
[2024-07-23 08:42] VITALS: BP 149/76; PULSE 66; RESP 18; TEMP 97.5; O2SAT 98
[2024-07-23] MEDS: metOLazone 2.5 MG TABLET PO SCH (09:11)
[2024-07-23] MEDS ORDERED: SODIUM CHLORIDE 0.9% 500 ML IV ONE (10:45)
[2024-07-23] MEDS: SOD FERRIC GLUC COMPLX/SUCROSE 125 MG in SODIUM CHLORIDE 0.9% 100 ML IV SCH (10:53)
[2024-07-23 12:08] VITALS: BP 158/79; PULSE 71; RESP 19; TEMP 97.5; O2SAT 94
[2024-07-23 16:49] VITALS: BP 147/78; PULSE 81; RESP 16; TEMP 97.7; O2SAT 98
[2024-07-23 20:00] VITALS: BP 140/75; PULSE 70; RESP 16; TEMP 97.7; O2SAT 95
[2024-07-23 20:02] LABS: GLUCOMETER DEV NAME(LOC) 5N.1D; GLUCOSE,POINT OF CARE 73 MG/DL (70-110)
[2024-07-23 20:08] LABS: GLUCOMETER DEV NAME(LOC) 5S.2D; GLUCOSE,POINT OF CARE 167 MG/DL (70-110)
[2024-07-23 20:08] LABS: GLUCOMETER DEV NAME(LOC) 5S.2D; GLUCOSE,POINT OF CARE 261 MG/DL (70-110)
[2024-07-23 20:08] LABS: GLUCOMETER DEV NAME(LOC) 5S.2D; GLUCOSE,POINT OF CARE 299 MG/DL (70-110)
[2024-07-23 20:09] LABS: GLUCOMETER DEV NAME(LOC) 5S.2D; GLUCOSE,POINT OF CARE 146 MG/DL (70-110)
[2024-07-23 20:09] LABS: GLUCOMETER DEV NAME(LOC) 5S.2D; GLUCOSE,POINT OF CARE 126 MG/DL (70-110)
[2024-07-23 20:09] LABS: GLUCOMETER DEV NAME(LOC) 5S.2D; GLUCOSE,POINT OF CARE 157 MG/DL (70-110)
[2024-07-23 20:09] LABS: GLUCOMETER DEV NAME(LOC) 5S.2D; GLUCOSE,POINT OF CARE 139 MG/DL (70-110)
[2024-07-24] VITALS: BP 134/78; PULSE 67; RESP 16; TEMP 97.7; O2SAT 95
[2024-07-24 04:00] VITALS: BP 135/74; PULSE 63; RESP 18; TEMP 97.5; O2SAT 96
[2024-07-24 07:12] LABS: BASOPHILS % (AUTO) 1.3 % (0.0-2.0); EOSINOPHILS % (AUTO) 4.5 % (1.0-6.0); HEMATOCRIT 25.8 % (36-46); HEMOGLOBIN 8.2 g/dL (12.0-16.0); LYMPHOCYTES # (AUTO) 1.5 K/uL (1.0-4.8); LYMPHOCYTES % (AUTO) 23.5 % (22.0-44.0); MEAN CORPUSCULAR HGB CONC 31.7 G/dL (31.0-37.0); MEAN CORPUSCULAR VOLUME 88 fL (80-100); MONOCYTES # (AUTO) 0.8 K/uL (0.1-1.0); MONOCYTES % (AUTO) 11.5 % (2.0-9.0); NEUTROPHILS # (AUTO) 3.9 K/uL (1.8-7.7); NEUTROPHILS % (AUTO) 59.2 % (40.0-70.0); PLATELET COUNT (AUTO) 509 K/uL (150-450); RED BLOOD CELL COUNT(AUTO) 2.93 MIL/uL (4.00-5.20); RED CELL DISTRIBUTION WIDTH 18.6 % (11.5-14.5); WHITE BLOOD COUNT (AUTO) 6.6 K/uL (4.5-11.0)
[2024-07-24 07:18] LABS: CALCIUM, TOTAL 8.8 mg/dL (8.8-10.5); CREATININE 5.9 mg/dL (0.60-1.30)
[2024-07-24 07:27] VITALS: BP 142/77; PULSE 69; RESP 18; TEMP 98.2; O2SAT 95
[2024-07-24 12:00] VITALS: BP 137/70; PULSE 79; RESP 18; TEMP 97.5; O2SAT 94
[2024-07-24 17:19] VITALS: BP 162/78; PULSE 73; RESP 18; TEMP 98.4; O2SAT 96
[2024-07-24] MEDS ORDERED: MAGNESIUM SULFATE 2 GM/WATER 50 ML IV ONE (19:00)
[2024-07-24 20:00] VITALS: BP 168/97; PULSE 68; RESP 19; TEMP 97.5; O2SAT 91
[2024-07-25 07:11] LABS: BASOPHILS % (AUTO) 1.4 % (0.0-2.0); EOSINOPHILS % (AUTO) 4.1 % (1.0-6.0); HEMATOCRIT 26.7 % (36-46); HEMOGLOBIN 8.4 g/dL (12.0-16.0); LYMPHOCYTES # (AUTO) 1.7 K/uL (1.0-4.8); LYMPHOCYTES % (AUTO) 23.1 % (22.0-44.0); MEAN CORPUSCULAR HGB CONC 31.5 G/dL (31.0-37.0); MEAN CORPUSCULAR VOLUME 89 fL (80-100); MONOCYTES % (AUTO) 13.6 % (2.0-9.0); NEUTROPHILS # (AUTO) 4.2 K/uL (1.8-7.7); NEUTROPHILS % (AUTO) 57.8 % (40.0-70.0); PLATELET COUNT (AUTO) 538 K/uL (150-450); RED CELL DISTRIBUTION WIDTH 18.9 % (11.5-14.5); WHITE BLOOD COUNT (AUTO) 7.2 K/uL (4.5-11.0)
[2024-07-25 07:20] LABS: CREATININE 5.83 mg/dL (0.60-1.30); POTASSIUM 3.8 mmol/L (3.5-5.1)
[2024-07-25 08:30] VITALS: BP 158/82; PULSE 66; RESP 17; TEMP 97.5; O2SAT 94
[2024-07-25 10:58] VITALS: BP 171/81; PULSE 75; RESP 19; TEMP 97.5; O2SAT 95
[2024-07-25 15:50] VITALS: BP 171/94; PULSE 72; RESP 19; TEMP 98.4; O2SAT 98
[2024-07-25 20:00] VITALS: BP 159/83; PULSE 73; RESP 18; TEMP 97.5; O2SAT 95
[2024-07-25] MEDS: BUMETANIDE 0.25 MG/ML 4 ML VIAL IVP SCH (20:38)
[2024-07-25] MEDS: NYSTATIN 15 GM POWDER BOTTLE TP SCH (20:39)
[2024-07-26] VITALS: BP 168/78; PULSE 68; RESP 18; TEMP 97.5; O2SAT 96
[2024-07-26 02:51] LABS: GLUCOMETER DEV NAME(LOC) 5S.2D; GLUCOSE,POINT OF CARE 111 MG/DL (70-110)
[2024-07-26 02:51] LABS: GLUCOMETER DEV NAME(LOC) 5S.2D; GLUCOSE,POINT OF CARE 215 MG/DL (70-110)
[2024-07-26 02:51] LABS: GLUCOMETER DEV NAME(LOC) 5S.2D; GLUCOSE,POINT OF CARE 105 MG/DL (70-110)
[2024-07-26 02:51] LABS: GLUCOMETER DEV NAME(LOC) 5S.2D; GLUCOSE,POINT OF CARE 151 MG/DL (70-110)
[2024-07-26 02:51] LABS: GLUCOMETER DEV NAME(LOC) 5S.2D; GLUCOSE,POINT OF CARE 130 MG/DL (70-110)
[2024-07-26 02:51] LABS: GLUCOMETER DEV NAME(LOC) 5S.2D; GLUCOSE,POINT OF CARE 153 MG/DL (70-110)
[2024-07-26 02:51] LABS: GLUCOMETER DEV NAME(LOC) 5S.2D; GLUCOSE,POINT OF CARE 130 MG/DL (70-110)
[2024-07-26 02:51] LABS: GLUCOMETER DEV NAME(LOC) 5S.2D; GLUCOSE,POINT OF CARE 212 MG/DL (70-110)
[2024-07-26 02:52] LABS: GLUCOMETER DEV NAME(LOC) 5S.2D; GLUCOSE,POINT OF CARE 146 MG/DL (70-110)
[2024-07-26 04:00] VITALS: BP 152/95; PULSE 67; RESP 18; TEMP 97.5; O2SAT 95
[2024-07-26 06:06] LABS: GLUCOMETER DEV NAME(LOC) 5S.2D; GLUCOSE,POINT OF CARE 102 MG/DL (70-110)
[2024-07-26 07:47] LABS: CREATININE 5.7 mg/dL (0.60-1.30); MAGNESIUM 2.5 mg/dL (1.80-2.40); POTASSIUM 3.4 mmol/L (3.5-5.1)
[2024-07-26 08:14] VITALS: BP 165/95; PULSE 70; RESP 18; TEMP 97.5; O2SAT 94
[2024-07-26] MEDS: metOLazone 2.5 MG TABLET PO SCH (09:10)
[2024-07-26 12:25] VITALS: BP 163/70; PULSE 78; RESP 17; TEMP 97.7; O2SAT 95
[2024-07-26 16:36] LABS: GLUCOMETER DEV NAME(LOC) 5S.2D; GLUCOSE,POINT OF CARE 156 MG/DL (70-110)
[2024-07-26 17:39] VITALS: BP 153/84; PULSE 69; RESP 18; TEMP 98.1; O2SAT 94
[2024-07-26 18:56] LABS: GLUCOMETER DEV NAME(LOC) 5S.2D; GLUCOSE,POINT OF CARE 195 MG/DL (70-110)
[2024-07-26 20:14] VITALS: BP 151/88; PULSE 75; RESP 19; TEMP 97.5; O2SAT 93
[2024-07-27] VITALS (16 sets, daily range): BP systolic 143–194; BP diastolic 72–98; PULSE 65–80; RESP 18–19; TEMP 97.5–98.6; O2SAT 91–95
[2024-07-27] MEDS ORDERED: LIDOCAINE/PF 1% 30 ML VIAL ONE (08:50)
[2024-07-27] MEDS ORDERED: SODIUM BICARBONATE 50 MEQ/50 ML VIAL ONE (08:50)
[2024-07-27] MEDS ORDERED: FentaNYL CITRATE PF 100 MCG/2 ML VIAL ONE (09:07)
[2024-07-27] MEDS ORDERED: MIDAZOLAM HCL 2 MG/2 ML VIAL ONE (09:07)
[2024-07-27] MEDS: MIDAZOLAM HCL 2 MG/2 ML VIAL IVP ONE ×3 (09:35→09:37)
[2024-07-27] MEDS: FentaNYL CITRATE PF 100 MCG/2 ML VIAL IVP ONE ×3 (09:35→09:37)
[2024-07-27] MEDS: LIDOCAINE 1% 30 ML/SOD BICARB 8.4% 4 ML SQ ONE (09:37)
[2024-07-27] MEDS: HEPARIN SODIUM,PORCINE 1,000 UNITS/ML 10 ML VIAL IVP ONE (09:48)
[2024-07-27] MEDS: ERGOCALCIFEROL (VIT D2) 50,000 UNITS [1,250 MCG] CAPSULE PO SCH (10:41)
[2024-07-27] MEDS ORDERED: HEPARIN SODIUM,PORCINE 1,000 UNITS/ML VIAL ONE (12:00)
[2024-07-27 12:26] LABS: GLUCOMETER DEV NAME(LOC) 5S.2D; GLUCOSE,POINT OF CARE 208 MG/DL (70-110)
[2024-07-27 18:21] LABS: GLUCOMETER DEV NAME(LOC) 5N.1D; GLUCOSE,POINT OF CARE 189 MG/DL (70-110)
[2024-07-27] MEDS: SIMVASTATIN 10 MG TABLET PO SCH (22:09)
[2024-07-27 22:21] LABS: GLUCOMETER DEV NAME(LOC) 5S.2D; GLUCOSE,POINT OF CARE 226 MG/DL (70-110)
[2024-07-27 22:21] LABS: GLUCOMETER DEV NAME(LOC) 5S.2D; GLUCOSE,POINT OF CARE 202 MG/DL (70-110)
[2024-07-28] VITALS (11 sets, daily range): BP systolic 148–197; BP diastolic 69–111; PULSE 68–86; RESP 18–20; TEMP 97.5–98.8; O2SAT 91–95
[2024-07-28 07:25] LABS: GLUCOMETER DEV NAME(LOC) 5S.2D; GLUCOSE,POINT OF CARE 187 MG/DL (70-110)
[2024-07-28 07:26] LABS: CHOL/HDL RATIO 1.7 (3.9-5.7)
[2024-07-28] MEDS: HydrALAZINE HCL 50 MG TABLET PO SCH (09:33)
[2024-07-28] MEDS ORDERED: HEPARIN SODIUM,PORCINE 1,000 UNITS/ML VIAL ONE (12:00)
[2024-07-28 20:50] LABS: GLUCOMETER DEV NAME(LOC) 5N.1D; GLUCOSE,POINT OF CARE 191 MG/DL (70-110)
[2024-07-28 20:51] LABS: GLUCOMETER DEV NAME(LOC) 5S.2D; GLUCOSE,POINT OF CARE 265 MG/DL (70-110)
[2024-07-28 20:51] LABS: GLUCOMETER DEV NAME(LOC) 5N.1D; GLUCOSE,POINT OF CARE 301 MG/DL (70-110)
[2024-07-29] VITALS (18 sets, daily range): BP systolic 159–199; BP diastolic 78–100; PULSE 67–78; RESP 18–19; TEMP 96.5–99.1; O2SAT 95–98
[2024-07-29] MEDS: HEPARIN SODIUM,PORCINE 1,000 UNITS/ML VIAL IVCATH PRN ×2 (01:05)
[2024-07-29 06:29] LABS: BASOPHILS % (AUTO) 0.8 % (0.0-2.0); EOSINOPHILS % (AUTO) 2.2 % (1.0-6.0); HEMATOCRIT 25.6 % (36-46); HEMOGLOBIN 8.2 g/dL (12.0-16.0); LYMPHOCYTES # (AUTO) 1.2 K/uL (1.0-4.8); LYMPHOCYTES % (AUTO) 12.7 % (22.0-44.0); MEAN CORPUSCULAR HEMOGLOBIN 28.4 pg (26.0-34.0); MEAN CORPUSCULAR HGB CONC 32.2 G/dL (31.0-37.0); MEAN CORPUSCULAR VOLUME 88 fL (80-100); MONOCYTES # (AUTO) 1.2 K/uL (0.1-1.0); MONOCYTES % (AUTO) 12.3 % (2.0-9.0); PLATELET COUNT (AUTO) 439 K/uL (150-450); RED CELL DISTRIBUTION WIDTH 19.8 % (11.5-14.5); WHITE BLOOD COUNT (AUTO) 9.7 K/uL (4.5-11.0)
[2024-07-29 06:39] LABS: CALCIUM, TOTAL 8.9 mg/dL (8.8-10.5); CREATININE 3.84 mg/dL (0.60-1.30); POTASSIUM 3.4 mmol/L (3.5-5.1)
[2024-07-29 06:41] LABS: GLUCOMETER DEV NAME(LOC) 5N.1D; GLUCOSE,POINT OF CARE 213 MG/DL (70-110)
[2024-07-29] MEDS: FOLIC ACID/VIT B COMPLEX AND C TABLET PO SCH (08:40)
[2024-07-29] MEDS: BUMETANIDE 1 MG TABLET PO SCH (08:41)
[2024-07-29] MEDS ORDERED: ONDANSETRON HCL 4 MG/2 ML VIAL IVP PRN (09:15)
[2024-07-29] MEDS ORDERED: SODIUM CHLORIDE 0.9% 1,000 ML ONE ×2 (09:29)
[2024-07-29 20:41] LABS: GLUCOMETER DEV NAME(LOC) 5S.2D; GLUCOSE,POINT OF CARE 189 MG/DL (70-110)
[2024-07-29 20:41] LABS: GLUCOMETER DEV NAME(LOC) 5N.1D; GLUCOSE,POINT OF CARE 230 MG/DL (70-110)
[2024-07-30] VITALS (7 sets, daily range): BP systolic 155–200; BP diastolic 73–95; PULSE 66–77; RESP 16–20; TEMP 97.5–98.4; O2SAT 95–97
[2024-07-30 06:54] LABS: EOSINOPHILS % (AUTO) 2.9 % (1.0-6.0); HEMOGLOBIN 8.4 g/dL (12.0-16.0); LYMPHOCYTES # (AUTO) 1.7 K/uL (1.0-4.8); LYMPHOCYTES % (AUTO) 17.8 % (22.0-44.0); MEAN CORPUSCULAR HEMOGLOBIN 29.1 pg (26.0-34.0); MEAN CORPUSCULAR HGB CONC 32.4 G/dL (31.0-37.0); MEAN CORPUSCULAR VOLUME 90 fL (80-100); MONOCYTES # (AUTO) 1.3 K/uL (0.1-1.0); MONOCYTES % (AUTO) 13.3 % (2.0-9.0); NEUTROPHILS # (AUTO) 6.2 K/uL (1.8-7.7); PLATELET COUNT (AUTO) 399 K/uL (150-450); RED CELL DISTRIBUTION WIDTH 20.9 % (11.5-14.5); WHITE BLOOD COUNT (AUTO) 9.5 K/uL (4.5-11.0)
[2024-07-30 07:07] LABS: CALCIUM, TOTAL 8.7 mg/dL (8.8-10.5); CREATININE 3.25 mg/dL (0.60-1.30); POTASSIUM 3.4 mmol/L (3.5-5.1)
[2024-07-30 07:11] LABS: GLUCOMETER DEV NAME(LOC) 5S.2D; GLUCOSE,POINT OF CARE 224 MG/DL (70-110)
[2024-07-30 07:11] LABS: GLUCOMETER DEV NAME(LOC) 5S.2D; GLUCOSE,POINT OF CARE 158 MG/DL (70-110)
[2024-07-30] MEDS: ISOSORBIDE MONONITRATE 30 MG ER TABLET PO SCH (17:43)
[2024-07-30 20:56] LABS: GLUCOMETER DEV NAME(LOC) 5N.1D; GLUCOSE,POINT OF CARE 171 MG/DL (70-110)
[2024-07-30 20:56] LABS: GLUCOMETER DEV NAME(LOC) 5N.1D; GLUCOSE,POINT OF CARE 158 MG/DL (70-110)
[2024-07-31] VITALS (13 sets, daily range): BP systolic 151–194; BP diastolic 72–109; PULSE 66–82; RESP 18–19; TEMP 96.8–97.8; O2SAT 96–97
[2024-07-31 05:56] LABS: GLUCOMETER DEV NAME(LOC) 5S.2D; GLUCOSE,POINT OF CARE 198 MG/DL (70-110)
[2024-07-31 07:04] LABS: BASOPHILS % (AUTO) 1.1 % (0.0-2.0); EOSINOPHILS % (AUTO) 3.7 % (1.0-6.0); HEMATOCRIT 24.7 % (36-46); LYMPHOCYTES # (AUTO) 1.3 K/uL (1.0-4.8); LYMPHOCYTES % (AUTO) 14.6 % (22.0-44.0); MEAN CORPUSCULAR HGB CONC 32.4 G/dL (31.0-37.0); MEAN CORPUSCULAR VOLUME 90 fL (80-100); MONOCYTES # (AUTO) 1.1 K/uL (0.1-1.0); MONOCYTES % (AUTO) 12.4 % (2.0-9.0); NEUTROPHILS # (AUTO) 5.8 K/uL (1.8-7.7); NEUTROPHILS % (AUTO) 68.2 % (40.0-70.0); PLATELET COUNT (AUTO) 371 K/uL (150-450); RED BLOOD CELL COUNT(AUTO) 2.75 MIL/uL (4.00-5.20); RED CELL DISTRIBUTION WIDTH 21.7 % (11.5-14.5); WHITE BLOOD COUNT (AUTO) 8.6 K/uL (4.5-11.0)
[2024-07-31 07:12] LABS: CALCIUM, TOTAL 8.6 mg/dL (8.8-10.5); CREATININE 3.66 mg/dL (0.60-1.30); POTASSIUM 3.4 mmol/L (3.5-5.1)
[2024-07-31 09:15] LABS: GLUCOMETER DEV NAME(LOC) 5N.1D; GLUCOSE,POINT OF CARE 168 MG/DL (70-110)
[2024-07-31 09:15] LABS: GLUCOMETER DEV NAME(LOC) 5N.1D; GLUCOSE,POINT OF CARE 132 MG/DL (70-110)
[2024-07-31] MEDS ORDERED: FOLI0.8T54 PO (11:03)
[2024-07-31] MEDS ORDERED: HYDR50TA37 PO (11:03)
[2024-07-31] MEDS ORDERED: ISOS30TA92 PO (11:03)
[2024-07-31] MEDS ORDERED: SIMV10TA97 PO (11:03)
[2024-07-31] MEDS ORDERED: BUME1TAB50 PO (11:03)
[2024-07-31] MEDS ORDERED: CLON0.3T PO (11:03)
[2024-07-31] MEDS ORDERED: HEPARIN SODIUM,PORCINE 1,000 UNITS/ML VIAL ONE (12:00)
[2024-07-31 12:10] LABS: GLUCOMETER DEV NAME(LOC) 5N.2C; GLUCOSE,POINT OF CARE 151 MG/DL (70-110)
[2024-07-31 17:51] LABS: GLUCOMETER DEV NAME(LOC) 5N.1D; GLUCOSE,POINT OF CARE 182 MG/DL (70-110)
[2024-08-01] VITALS: BP 180/95; PULSE 76; RESP 16; TEMP 98.1; O2SAT 94
[2024-08-01 01:06] LABS: GLUCOMETER DEV NAME(LOC) 5N.1D; GLUCOSE,POINT OF CARE 211 MG/DL (70-110)
[2024-08-01 01:40] VITALS: BP 150/74; PULSE 75
[2024-08-01 04:36] VITALS: BP 153/77; PULSE 72; RESP 17; TEMP 98.8; O2SAT 94
[2024-08-01 06:25] LABS: GLUCOMETER DEV NAME(LOC) 5N.2C; GLUCOSE,POINT OF CARE 199 MG/DL (70-110)
[2024-08-01 08:25] VITALS: BP 169/77; PULSE 76; RESP 18; TEMP 98.8; O2SAT 96
[2024-08-01 08:45] LABS: BASOPHILS % (AUTO) 0.9 % (0.0-2.0); EOSINOPHILS % (AUTO) 2.4 % (1.0-6.0); HEMATOCRIT 25.8 % (36-46); HEMOGLOBIN 8.2 g/dL (12.0-16.0); LYMPHOCYTES # (AUTO) 1.1 K/uL (1.0-4.8); LYMPHOCYTES % (AUTO) 11.8 % (22.0-44.0); MEAN CORPUSCULAR HEMOGLOBIN 28.5 pg (26.0-34.0); MEAN CORPUSCULAR HGB CONC 31.6 G/dL (31.0-37.0); MEAN CORPUSCULAR VOLUME 90 fL (80-100); MONOCYTES % (AUTO) 10.8 % (2.0-9.0); NEUTROPHILS % (AUTO) 74.1 % (40.0-70.0); PLATELET COUNT (AUTO) 352 K/uL (150-450); RED BLOOD CELL COUNT(AUTO) 2.86 MIL/uL (4.00-5.20); RED CELL DISTRIBUTION WIDTH 21.6 % (11.5-14.5); WHITE BLOOD COUNT (AUTO) 9.4 K/uL (4.5-11.0)
[2024-08-01 08:56] LABS: CALCIUM, TOTAL 7.7 mg/dL (8.8-10.5); CREATININE 2.95 mg/dL (0.60-1.30); POTASSIUM 3.2 mmol/L (3.5-5.1)
[2024-08-01 09:01] LABS: GLUCOMETER DEV NAME(LOC) 5N.1D; GLUCOSE,POINT OF CARE 155 MG/DL (70-110)
[2024-08-01 11:16] VITALS: BP 150/72; PULSE 70; RESP 18; TEMP 98.4; O2SAT 95
[2024-08-01 12:31] LABS: GLUCOMETER DEV NAME(LOC) 5N.1D; GLUCOSE,POINT OF CARE 201 MG/DL (70-110)
== END 2024-08-01 16:10 | disposition home health service (06) | DRG 314 ==
LOC: EMS 02:33 → EDH 07:01 → 5S 10:00
PROVIDERS: ADMIT Internal Medicine; ATTEND Internal Medicine
PROC: 0JH63XZ Insertion of Tunneled Vascular Access Device into Chest Subcutaneous Tissue and Fascia, Percutaneous Approach (ICD-10-PCS; principal; 2024-07-27)
PROC: 05HM33Z Insertion of Infusion Device into Right Internal Jugular Vein, Percutaneous Approach (ICD-10-PCS; 2024-07-27)
PROC: B543ZZA Ultrasonography of Right Jugular Veins, Guidance (ICD-10-PCS; 2024-07-27)
PROC: B5131ZA Fluoroscopy of Right Jugular Veins using Low Osmolar Contrast, Guidance (ICD-10-PCS; 2024-07-27)
PROC: 5A1D70Z Performance of Urinary Filtration, Intermittent, Less than 6 Hours Per Day (ICD-10-PCS; 2024-07-27)
PROC: 5A1D70Z Performance of Urinary Filtration, Intermittent, Less than 6 Hours Per Day (ICD-10-PCS; 2024-07-28)
PROC: 5A1D70Z Performance of Urinary Filtration, Intermittent, Less than 6 Hours Per Day (ICD-10-PCS; 2024-07-29)
PROC: 5A1D70Z Performance of Urinary Filtration, Intermittent, Less than 6 Hours Per Day (ICD-10-PCS; 2024-07-31)
DX: T82.510A Breakdown (mechanical) of surgically created arteriovenous fistula, initial encounter (principal); N18.6 End stage renal disease; I13.2 Hypertensive heart and chronic kidney disease with heart failure and with stage 5 chronic kidney disease, or end stage renal disease; Z68.42 Body mass index [BMI] 45.0-49.9, adult; I16.1 Hypertensive emergency; N17.9 Acute kidney failure, unspecified; E87.5 Hyperkalemia; I50.9 Heart failure, unspecified; D63.1 Anemia in chronic kidney disease; E11.22 Type 2 diabetes mellitus with diabetic chronic kidney disease; E11.319 Type 2 diabetes mellitus with unspecified diabetic retinopathy without macular edema; Z99.2 Dependence on renal dialysis; I27.20 Pulmonary hypertension, unspecified; E66.01 Morbid (severe) obesity due to excess calories; E83.39 Other disorders of phosphorus metabolism; H54.8 Legal blindness, as defined in USA; N25.0 Renal osteodystrophy; Z88.0 Allergy status to penicillin; Z88.6 Allergy status to analgesic agent; Z91.010 Allergy to peanuts; Z79.899 Other long term (current) drug therapy; Z79.4 Long term (current) use of insulin; Z83.3 Family history of diabetes mellitus; Y83.8 Other surgical procedures as the cause of abnormal reaction of the patient, or of later complication, without mention of misadventure at the time of the procedure; Y92.89 Other specified places as the place of occurrence of the external cause; T82.898A Other specified complication of vascular prosthetic devices, implants and grafts, initial encounter
CPT/HCPCS: 36561; 71045; 76000; 80048; 80061; 82962; 83735; 83880; 84100; 84132; 84484; 84703; 85025; 87081; 87340; 90935; 93005; 93990; 96365; 96375; 97110; 97116; 97163; 97530; 99285; J0610; J0885; J1644; J1815; J1940; J2250; J2916; J3010; J3490; J7030; J7040; J7050; J7060; 36415-L1; 36415-TC